=== PATIENT | female | born 1990 | race Caucasian/White ===

== ENCOUNTER 2020-05-11 16:25 | Outpatient (CLI) | payer OTHER ==
--- NOTE | 2020-05-11 17:50 | Ultrasound Report ---
PROCEDURE: OB First Trimester INDICATIONS: POSITIVE PREGANCY TEST OUTSIDE/PRIOR DATING DATA: Last menstrual period (LMP): 03/13/2020. LMP-based estimated date of delivery (JOSE): 12/18/2020. First dating scan (date and location): Today's scan. TECHNIQUE: Real-time scanning was performed of the fetus and maternal pelvic organs, with image documentation. COMPARISON: None. FINDINGS: Embryo: There is an intrauterine gestational . A pole is present with a crown-rump le ngth averaging 1.9 cm corresponding to an estimated gestational age of 8 weeks 3 days. Additionally, the mean gestational sac diameter is 3.1 cm corresponding to an estimated gestational age of 8 weeks 2 days. A yolk sac is also present. heart rate of 180 bpm. Measurement variability in dating: +/- 4 weeks by LMP, +/- 7 days by mean sac diameter (use before 6 weeks gestation if crown-rump length not able to be measured), +/- 5 days by crown-rump length (6-12 weeks gestation). Maternal organs: Right ovary measures 3.5 x 1.8 x 1.8 cm. Left ovary measures 5.0 x 3.9 x 3.2 cm. The re is a simple anechoic 3.2 cm cyst in the left ovary. The cervix is closed. IMPRESSION: Single living intrauterine with heart rate of 180 bpm. Estimated gestational age on jose albrecht's study is 8 weeks 3 days by crown-rump length. Simple 3.2 cm cyst of the left ovary. Reviewed by: Dexter Easton on 05/11/2020 4:49 PM JESSE Approved by: Dexter Easton on 05/11/2020 4:49 PM JESSE Station ID: [id number]
== END 2020-05-11 16:26 | disposition home or self-care (01) ==
LOC: DI 16:25
PROVIDERS: ATTEND Nurse Practitioner Obstetrics & Gynecology
DX: Z32.01 Encounter for pregnancy test, result positive (principal)
CPT/HCPCS: 76801

== ENCOUNTER 2020-05-21 10:00 | Outpatient (CLI) | payer OTHER ==
[2020-05-21 15:51] LABS: BILIRUBIN,URINE NEGATIVE (NEGATIVE); GLUCOSE, URINE (UA) NEGATIVE (NEGATIVE); KETONES,URINE (UA) NEGATIVE (NEGATIVE); LEUKOCYTE ESTERASE, URINE NEGATIVE (NEGATIVE); NITRITE,URINE NEGATIVE (NEGATIVE); OCCULT BLOOD,URINE NEGATIVE (NEGATIVE); PROTEIN,URINE NEGATIVE (NEGATIVE); UROBILINOGEN,URINE 0.2 (NORMAL) E.U./dL (NORMAL)
[2020-05-21 15:52] LABS: CLARITY,URINE CLEAR (CLEAR)
[2020-05-21 16:00] LABS: BACTERIA,URINE Rare /HPF (None Seen); SQUAMOUS EPITHELIAL CELL,UR FEW Squamous (<= Few)
== END 2020-05-21 23:59 | disposition home or self-care (01) ==
LOC: LAB.R 10:00
PROVIDERS: ATTEND Nurse Practitioner Obstetrics & Gynecology
DX: Z36.89 Encounter for other specified antenatal screening (principal)
CPT/HCPCS: 81001; 87086

== ENCOUNTER 2020-05-28 11:08 | Outpatient (CLI) | payer OTHER ==
[2020-05-28 11:25] LABS: BASOPHILS # (AUTO) 0.1 10^3/uL (0.0-0.1); BASOPHILS % (AUTO) 0.6 %; EOSINOPHILS # (AUTO) 0.2 10^3/uL (0.0-0.7); HGB - HEMOGLOBIN 13.2 g/dL (12.0-16.0); LYMPHOCYTES % (AUTO) 9.8 %; MEAN CORPUSCULAR HEMOGLOBIN 30.2 pg (27.0-31.0); MEAN CORPUSCULAR HGB CONC 33.2 g/dL (32.0-36.0); MEAN CORPUSCULAR VOLUME 91.1 fL (81.0-99.0); MEAN PLATELET VOLUME 8.5 fL (7.9-10.8); MONOCYTES # (AUTO) 0.5 10^3/uL (0.0-1.0); MONOCYTES % (AUTO) 4.9 %; NEUTROPHILS # (AUTO) 8.2 10^3/uL (1.5-6.6); PLT - PLATELET COUNT 212 10^3/uL (130-450); RED BLOOD COUNT 4.37 10^6/uL (4.20-5.40); RED CELL DISTRIBUTION WIDTH 11.9 % (12.0-15.0)
[2020-05-29 12:16] LABS: HIV AG/AB 4TH GEN NON-REACTIVE (NON-REACTIVE)
[2020-05-29 12:45] LABS: HEPATITIS C ANTIBODY NON-REACTIVE (NON-REACTIVE)
[2020-05-29 12:46] LABS: HEPATITIS B SURFACE ANTIGEN NON-REACTIVE (NON-REACTIVE)
== END 2020-05-28 11:09 | disposition home or self-care (01) ==
LOC: LAB 11:08
PROVIDERS: ATTEND Nurse Practitioner Obstetrics & Gynecology
DX: Z36.89 Encounter for other specified antenatal screening (principal)
CPT/HCPCS: 36415; 81599; 85025; 86592; 86762; 86787; 86803; 86850; 86900; 86901; 87340; 87389

== ENCOUNTER 2020-07-23 07:26 | Outpatient (CLI) | payer OTHER | END 2020-07-23 07:27 | disposition home or self-care (01) | LOC: LAB 07:26 | PROVIDERS: ATTEND Nurse Practitioner Obstetrics & Gynecology | DX: Z36.89 Encounter for other specified antenatal screening (principal) | CPT/HCPCS: 36415; 82306 ==

== ENCOUNTER 2020-08-06 07:18 | Outpatient (CLI) | payer OTHER ==
--- NOTE | 2020-08-06 18:16 | Ultrasound Report ---
PROCEDURE: OB Detailed Eval INDICATIONS: SCREENING OUTSIDE/PRIOR DATING DATA: Last menstrual period (LMP): 03/13/2020. LMP-based estimated date of delivery (JOSE): 12/19/2019. First dating scan (date and location): 05/11/2020. Estimated date of delivery (JOSE) from first dating scan: 12/18/2020. TECHNIQUE: Real-time scanning was performed of the fetus, with image documentation and biometric measurements. Endovaginal scanning: Not performed COMPARISON: OB ultrasound, 05/11/2020. FINDINGS: General: A single living intrauterine gestation is present. Presentation: Cephalic, spine to the maternal left Placenta: Placental position is posterior, without previa. Amniotic fluid index: 13.6 cm, 38.3% for gestational age. heart rate: 144 beats per minute. Maternal cervical canal: 3.4 cm long; normal length is 2.5 cm or more. biometrics: Biparietal diameter: 20 weeks 4 days Head circumference: 20 weeks 5 days Abdominal circumference: 21 weeks 1 day Femur length: 20 weeks 2 days Estimated gestational age from initial scan: 20 weeks 6 days. Composite gestational age from present scan: 20 weeks 5 days Estimated weight and percentile: 375 g at 38.8% for gestational age Measurement variability in biometric dating: +/- 10 days from 12-20 weeks gestation, +/- 2 weeks from 20-30 weeks gestation, +/- 3 weeks at 30 weeks gestation or later. Anatomic survey: Neuro: Ventricles are normal at less than 10 mm. Cisterna magna is normal at 3-11 mm. Cerebellum i s normal in size and morphology. Nuchal skin fold: Normal at less than 6 mm between 14 and 20 weeks gestational age. Face: Nose and lips, facial profile are normal. Spine: No evidence for spina bifida. Heart: 4-chambered heart is present, with normal ventricular outflow tracts. Diaphragm: Diaphragm is intact. Stomach: Left-sided stomach is present. Kidneys: No hydronephrosis. Normal is less than 5 mm in 2nd trimester, less than 7 mm in 3rd trimester. Cord: 3 vessel cord has orthotopic insertion. Bladder: Normal in size. Extremities: All 4 extremities are visualized. IMPRESSION: 1. A single living intrauterine with appropriate interval growth. 2. Normal anatomic survey. Reviewed by: Steffi Tello MD on 08/06/2020 6:14 PM PST Approved by: Steffi Tello MD on 08/06/2020 6:14 PM PST Station ID: [id number]
== END 2020-08-06 07:19 | disposition home or self-care (01) ==
LOC: DI 07:18
PROVIDERS: ATTEND Nurse Practitioner Obstetrics & Gynecology
DX: Z36.89 Encounter for other specified antenatal screening (principal)

== ENCOUNTER 2020-09-17 07:18 | Outpatient (CLI) | payer OTHER ==
[2020-09-17 08:40] LABS: HGB - HEMOGLOBIN 12.6 g/dL (12.0-16.0); MEAN CORPUSCULAR HEMOGLOBIN 31.7 pg (27.0-31.0); MEAN CORPUSCULAR HGB CONC 33.3 g/dL (32.0-36.0); MEAN PLATELET VOLUME 8.7 fL (7.9-10.8); RED BLOOD COUNT 3.98 10^6/uL (4.20-5.40); RED CELL DISTRIBUTION WIDTH 12.7 % (12.0-15.0); WHITE BLOOD COUNT 7.9 x10^3/uL (4.8-10.8)
== END 2020-09-17 07:19 | disposition home or self-care (01) ==
LOC: LAB 07:18
PROVIDERS: ATTEND Nurse Practitioner Obstetrics & Gynecology
DX: Z36.89 Encounter for other specified antenatal screening (principal)
CPT/HCPCS: 36415; 82950; 85027

== ENCOUNTER 2020-10-01 07:09 | Outpatient (CLI) | payer OTHER | END 2020-10-01 07:10 | disposition home or self-care (01) | LOC: LAB 07:09 | PROVIDERS: ATTEND Nurse Practitioner Obstetrics & Gynecology | DX: O99.810 Abnormal glucose complicating pregnancy (principal) | CPT/HCPCS: 36415; 82951; 82952 ==

== ENCOUNTER 2020-11-20 10:47 | Outpatient (CLI) | payer OTHER | END 2020-11-20 23:59 | disposition home or self-care (01) | LOC: LAB.R 10:47 | PROVIDERS: ATTEND Advanced Practice Midwife | DX: Z34.90 Encounter for supervision of normal pregnancy, unspecified, unspecified trimester (principal); Z36.85 Encounter for antenatal screening for Streptococcus B | CPT/HCPCS: 87797 ==

== ENCOUNTER 2020-12-26 08:13 | Outpatient (CLI) | payer OTHER ==
[2020-12-26 08:38] VITALS: BP 106/73
--- NOTE | 2020-12-26 11:13 | PROCEDURE REPORT ---
- HPI Diagnosis/Indication for NST: Post-dates gestation Current EDU 12/18/20 Gestation 41 Weeks and 1 Days 1 Para 0 Vital Signs Temperature 36.8 C 12/26/20 08:31 Heart Rate 79 12/26/20 08:31 Respiratory Rate 18 12/26/20 08:31 Blood Pressure 106/73 12/26/20 08:31 Temperature 36.8 C 12/26/20 08:31 Heart Rate 79 12/26/20 08:31 Respiratory Rate 18 12/26/20 08:31 Blood Pressure 106/73 12/26/20 08:31 O2 Saturation - NST Procedure NST Procedure Start Date 12/26/20 Start Time 08:25 Stop Time 08:54 Vibroacoustic Stimulation Used No Patient States Movement Yes - Results and Plan Plan: Barbi presents today at 41.1wks gestation for scheduled NST secondary to postdates . She states she is feeling well and denies concerns or complaints today. NST performed 12/26/2020 NST read 12/26/2020 NST reactive. FHR baseline 130s, moderate variability, + accels, no decels No contractions appreciated via tocometry Pt released home with precautions. Return for scheduled medical induction of labor 12/30/2020 or sooner PRN. Pt verbalized understanding and agrees to above plan. She denies further questions or concerns at this time. FINAL ASSESSMENT: Postdates
== END 2020-12-26 08:54 | disposition home or self-care (01) ==
LOC: WFO 08:13 → FBP 08:18 → WFO 08:54
PROVIDERS: ATTEND Nurse Practitioner Obstetrics & Gynecology
DX: O48.0 Post-term pregnancy (principal); Z3A.41 41 weeks gestation of pregnancy
CPT/HCPCS: 59025

== ENCOUNTER 2020-12-30 08:28 | Inpatient (IN) | payer OTHER ==
--- NOTE | 2020-12-30 08:38 | HISTORY & PHYSICAL EXAMINATION ---
Admit History - Visit Reason Visit Reason: Other - : 1 Parity: 0 Premature: 0 Ectopic: 0 : 0 Care: positive: [facility] Risk/History: positive: None Complications This : positive: None Smoking Status: Never smoker - Mother's Labs Mother's Blood Type: positive: O Mother's RH: positive: Positive GBS: positive: Group B Step Negative Rubella Status: positive: Immune Meds/Allgy - Allergies Allergies/Adverse Reactions: Allergies Allergy/AdvReac Type Severity Reaction Status Date / Time No Known Drug Allergies Allergy Verified 12/30/20 09:53 Review of Systems - Constitutional Constitutional: denies: Fever, Chills - Eyes Eyes: denies: Blurred vision, Spots in vision, Dipolpia - Cardiovascular Cariovascular: denies: Palpitations, Chest pain, Edema - Respiratory Respiratory: denies: Cough, SOB at rest - Gastrointestinal Gastrointestinal: denies: Change in bowel habits - Integumentary Integumentary: denies: Rash, Pruritis - Neurological Neurological: denies: Headache Plan for Labor - Plan For Labor I expect patient to be DC'd or transferred within 96 hours.: Yes Plan for Labor: Barbi is a 30yo 1P0 @ 41.5wks gestation by LMP c/w 8.3wk U/S who presents today for medical induction of labor secondary to post-dates . She reports continued eliud prajapati contractions and occasional cramping but nothing overly painful or consistent. She denies vaginal bleeding or leakage of fluid. She reports +FM. She is supported by her Kenroy. She has been a patient of [facility] through the duration of which has remained uncomplicated with the exception of an impaired 1 hour GTT, however her 3 hour GTT was WNL. She is also noted to be positive for GBS. She is post-dates and will be admitted to [facility] for induction of labor with pre-induction cervical ripening. Dating criteria: LMP: 03/13/2020 Initial U/S @ 8.3wks c/w LMP dating Serial exams - agree OB Hx: G1: Current Medications: PNV Allergies: NKDA PMHx: no significant Surgical Hx: Endoscopy with biopsy (2010); [place] tooth removal (2006) Social Hx. Never smoker. No ETOH or IVDA. Kenroy. Family Hx: HTN - father; Lung cancer- MGF; Alcohol & drug abuse- brother course: Initial U/S: 05/11/2020 @ 8.3wks c/w LMP dating O pos/Rubella immune VZV:immune Genetic testing: declined FAS 08/06/2020 WNL. Posterior placenta, no previa. 3VC. efw 38.8% Glucola 1 hr 140; 3 hour WNL (97, 156, 133, 83) Influenza: declined TDAP declined GBS & at 36 weeks-Positive IPAP HSV: denies self and partner Breast pump Rx provided MOD: Anticipate . Kenroy, baby BOY: Kuldeep. Desires unmedicated delivery. pp contraception: natural family planning & condoms pap: 05/21/2020- wnl Physical Exam: Normocephalic, atraumatic Heart RRR w/o M/G/R Lungs CTAB Abdomen gravid, soft, nontender EFW 3800g SVE deferred FHR baseline 130s, + accels, no decels Contractions - occasional with soft resting tone Bilateral LE's no edema Mood is good Assessment: 30yo @ 41.5wks gestation by LMP c/w 8.3wk U/S Postdates GBS positive FHR Category I Plan: Continuous monitoring Initiate 50mcg BC misoprostol q 4 hours for pre-induction cervical ripening Initiate Ampicillin for GBS prophylaxis per protocol when patient begins feeling contractions or with AROM. Encouraged ambulation and position changes. Jacuzzi PRN. Nitrous oxide PRN. Anticipate . Pt verbalized understanding and agrees to above plan. She denies further questions or concerns at this time.
[2020-12-30] MEDS ORDERED: LIDOCAINE-MPF 1% 30 ML VIAL ID PRN (09:42)
[2020-12-30] MEDS ORDERED: OXYTOCIN/SODIUM CHLORIDE 500 ML IV PRN (09:42)
[2020-12-30] MEDS ORDERED: CARBOPROST TROMETHAMINE 250 MCG/ML AMP IM PRN (09:42)
[2020-12-30] MEDS ORDERED: TRANEXAMIC ACID IN NACL 1,000 MG/100 ML BAG IV PRN (09:42)
[2020-12-30] MEDS ORDERED: miSOPROStoL 200 MCG TABLET BC PRN (09:42)
[2020-12-30] MEDS ORDERED: OXYTOCIN 10 UNIT/ML VIAL IM PRN (09:42)
[2020-12-30] MEDS ORDERED: SODIUM CHLORIDE FLUSH 0.9% 10 ML SYRINGE IVP PRN (09:42)
[2020-12-30] MEDS ORDERED: METHYLERGONOVINE 0.2 MG/ML VIAL IM PRN (09:42)
[2020-12-30 09:52] LABS: BASOPHILS % (AUTO) 0.8 %; EOSINOPHILS % (AUTO) 1.3 %; HCT - HEMATOCRIT 40.8 % (37.0-47.0); HGB - HEMOGLOBIN 13.9 g/dL (12.0-16.0); LYMPHOCYTES % (AUTO) 15.8 %; MEAN CORPUSCULAR HEMOGLOBIN 31.7 pg (27.0-31.0); MEAN CORPUSCULAR HGB CONC 34.1 g/dL (32.0-36.0); MEAN CORPUSCULAR VOLUME 92.9 fL (81.0-99.0); MEAN PLATELET VOLUME 9.3 fL (7.9-10.8); MONOCYTES % (AUTO) 8.8 %; NEUTROPHILS % (AUTO) 67.1 %; PLT - PLATELET COUNT 243 10^3/uL (130-450); RED BLOOD COUNT 4.39 10^6/uL (4.20-5.40); RED CELL DISTRIBUTION WIDTH 13.2 % (12.0-15.0); WHITE BLOOD COUNT 9.7 x10^3/uL (4.8-10.8)
[2020-12-30 09:55] LABS: SLIDE REVIEW? Indicated
[2020-12-30 09:56] LABS: ABNORMAL LYMPHS % (MANUAL) 0 %
[2020-12-30] MEDS: miSOPROStoL 100 MCG TABLET BC SCH ×3 (10:22→19:05)
[2020-12-30 10:23] LABS: BAND NEUTROPHILS % (MANUAL) 6 %; BASOPHILS # (MANUAL) 0.1 10^3/uL (0-0.1); BASOPHILS % (MANUAL) 1 %; EOSINOPHILS # (MANUAL) 0.2 10^3/uL (0-0.7); LYMPHOCYTES # (MANUAL) 1.9 10^3/uL (1.5-3.5); LYMPHOCYTES % (MANUAL) 20 %; METAMYELOCYTES % (MANUAL) 5 %; MONOCYTES # (MANUAL) 0.5 10^3/uL (0.0-1.0); MYELOCYTES % (MANUAL) 1 %; NEUTROPHILS # (MANUAL) 6.4 10^3/uL (1.5-6.6)
[2020-12-30 10:25] LABS: PLATELET ESTIMATE, MANUAL NORMAL (130-450,000) (NORMAL); PLATELET MORPHOLOGY NORMAL APP (NORMAL); RBC MORPHOLOGY (MULTIPLE) NORMAL APPEARANCE (NORMAL)
[2020-12-30 10:26] LABS: DIFFERENTIAL COMMENT MANUAL DIFFERENTIAL; WBC MORPHOLOGY (MULTIPLE) NORMAL APP (NORMAL)
[2020-12-30] MEDS: SODIUM CHLORIDE FLUSH 0.9% 10 ML SYRINGE IVP SCH (19:05)
[2020-12-30] MEDS: LACTATED RINGERS 1,000 ML IV SCH (19:05)
--- NOTE | 2020-12-30 20:49 | PROVIDER PROGRESS NOTE ---
Labor Progress Note - Uterine Monitoring Uterine Monitoring Mode: positive: External toco Contraction Frequency (min/apart): 1-3 Contraction Intensity: positive: Mild to moderate Uterine Resting Tone: positive: Soft - Monitoring Monitor Mode: positive: External ultrasound Heart Rate Baseline: 125 Heart Rate Variability: positive: Moderate (6-25 bmp) Accelerations: positive: Present, 15x15 Decelerations: positive: None Strip Review: positive: Category I - Vaginal Exam Dilation (in cm): 1 Effacement (%): 50 Station: -2 Cervical Position: Midposition - Labor Progress Note Labor Progress Note/Additional Text: S: Feeling very minimal discomfort with contractions. Denies concerns or complaints at this time. is supportive at the bedside. O: FHR baseline 125, moderate variability, + accels, no decels Contractions palpate mild every 1-3 minutes with soft resting tone S/p 3 doses of 50mcg BC misoprostol SVE 1/50/-2, midposition, medium. Vertex. Rodriguez cervical ripening balloon placed with 60cc in uterine lumen and 60cc in vaginal lumen. Pt tolerated placement well. A: 30yo @ 41.5wks gestation Postdates FHR Category I GBS positive P: Discontinue misoprostol now (5 hours since last dose). Monitor x 30 minutes after rodriguez cervical ripening balloon and then may take pt off monitors until contractions until early labor or SROM. Initiate GBS prophylaxis per protocol with SROM or early labor. Ambien PRN for sleep. Encouraged ambulation and position changes until she is ready to sleep for the night. Anticipate . Pt verbalized understanding and agrees to above plan. She denies further questions or concerns at this time.
[2020-12-30] MEDS ORDERED: ZOLPIDEM 5 MG TABLET PO PRN (20:51)
--- NOTE | 2020-12-31 07:27 | PROVIDER PROGRESS NOTE ---
Labor Progress Note - Uterine Monitoring Uterine Monitoring Mode: positive: External toco Contraction Frequency (min/apart): occasional Contraction Intensity: positive: Mild Uterine Resting Tone: positive: Soft - Monitoring Monitor Mode: positive: External ultrasound Heart Rate Baseline: 125 Heart Rate Variability: positive: Moderate (6-25 bmp) Accelerations: positive: Present, 15x15 Decelerations: positive: None Strip Review: positive: Category I - Vaginal Exam Dilation (in cm): 3-4 Effacement (%): 70 Station: -2 Cervical Position: Midposition - Labor Progress Note Labor Progress Note/Additional Text: S: Pt states she was feeling quite a bit more discomfort yesterday evening after the rodriguez bulb was placed. She got in the bath and was able to get comfortable. She ended up taking the ambien and was able to get a good night's rest. She is feeling well today. Her remains supportive at the bedside. O: FHR baseline 125, moderate variability, + accels, no decels Contractions palpate mild, irregularly Rodriguez cervical ripening balloon removed SVE 3-4/70/-2. Vertex. Intact membranes. S/p 3 doses of 50mcg BC misoprostol A: 30yo @ 41.6wks gestation FHR Category I GBS positive P: Continuos monitoring. Reviewed management options to include misoprostol vs pitocin and encouraged initiation of pitocin for labor induction. Pt elects to try 1 additional dose of 50mcg BC misoprostol and nipple stimulation prior to initiation of pitocin. Will initiate GBS prophylaxis per protocol with early labor onset or SROM. Encouraged ambulation and position changes. Jacuzzi PRN. Nitrous oxide PRN. Anticipate . Pt verbalized understanding and agrees to above plan. She denies further questions or concerns at this time.
[2020-12-31] MEDS ORDERED: miSOPROStoL 100 MCG TABLET BC SCH (07:45)
[2020-12-31] MEDS ORDERED: OXYTOCIN/SODIUM CHLORIDE 500 ML IV SCH (13:00)
[2020-12-31] MEDS: LACTATED RINGERS 1,000 ML IV SCH (13:10)
[2020-12-31] MEDS ORDERED: AMPICILLIN 2 GM in SODIUM CHLORIDE 0.9% MINIBAG 100 ML IV ONE (17:25)
--- NOTE | 2020-12-31 17:33 | PROVIDER PROGRESS NOTE ---
Labor Progress Note - Uterine Monitoring Uterine Monitoring Mode: positive: External toco Contraction Frequency (min/apart): 2-6 Contraction Intensity: positive: Mild to moderate Uterine Resting Tone: positive: Soft - Monitoring Monitor Mode: positive: External ultrasound Heart Rate Baseline: 130 Heart Rate Variability: positive: Moderate (6-25 bmp) Accelerations: positive: Present, 15x15 Decelerations: positive: None Strip Review: positive: Category I - Vaginal Exam Dilation (in cm): 4 Effacement (%): 50 Station: -2 Cervical Position: Posterior - Labor Progress Note Labor Progress Note/Additional Text: S: Feeling slight more discomfort with contractions. Feeling good about our plan of care. Her remains present and supportive at the bedside. O: FHR baseline 130s, moderate variability, + accels, no decels Contractions palpate mild every 2-5 minutes with soft resting tone SVE 4/50/-2, posterior. Soft. Vertex. AROM moderate amount of very lightly meconium stained amniotic fluid. Pitocin @ 2mU/mL A: 30yo @ 41.6wks gestation Postdates GBS positive FHR Category I P: Initiate Ampicillin for GBS prophylaxis per protocol Continuous monitoring Hold Pitocin @ 2mU/mL. Repeat SVE in 4 hours. Anticipate . Pt verbalized understanding and agrees to above plan. She denies further questions or concerns at this time.
[2020-12-31] MEDS: AMPICILLIN 1 GM in SODIUM CHLORIDE 0.9% MINIBAG 100 ML IV SCH (21:18)
--- NOTE | 2020-12-31 21:28 | PROVIDER PROGRESS NOTE ---
Labor Progress Note - Uterine Monitoring Uterine Monitoring Mode: positive: External toco Contraction Frequency (min/apart): 2-3 Contraction Intensity: positive: Strong Uterine Resting Tone: positive: Soft - Monitoring Monitor Mode: positive: External ultrasound Heart Rate Baseline: 145 Heart Rate Variability: positive: Moderate (6-25 bmp) Accelerations: positive: Present, 15x15 Decelerations: positive: None Strip Review: positive: Category I - Labor Progress Note Labor Progress Note/Additional Text: S: Patient sitting in tub with and brake holder supportive at the bedside. She is feeling significantly more discomfort with contractions that she was previously. She is breathing and moaning with contractions. Coping well. O: FHR baseline 145, moderate variability, + accels, no decels Contractions palpate strong every 2-3 minutes with soft resting tone SVE deferred at this time secondary to patient feeling unable to move from the tub. Pitocin @ 1mU/mL A: 30yo @ 41.6wks gestation Postdates GBS positive FHR Category I P: Continuous monitoring Continue GBS prophylaxis per protocol Anticipate
[2021-01-01] MEDS: LACTATED RINGERS 1,000 ML IV SCH ×2 (00:24→02:32)
--- NOTE | 2021-01-01 00:54 | PROVIDER PROGRESS NOTE ---
Labor Progress Note - Uterine Monitoring Uterine Monitoring Mode: positive: External toco Contraction Frequency (min/apart): 2-3 Contraction Intensity: positive: Strong Uterine Resting Tone: positive: Soft - Monitoring Monitor Mode: positive: External ultrasound Heart Rate Baseline: 130 Heart Rate Variability: positive: Moderate (6-25 bmp) Accelerations: positive: Present, 15x15 Decelerations: positive: None Strip Review: positive: Category I - Vaginal Exam Dilation (in cm): 6 Effacement (%): 80 Station: 0 - Labor Progress Note Labor Progress Note/Additional Text: S: Breathing through contractions. [facility] with partner and broodmare barn groom present for support. She has been moving consistently and is coping well with contractions. O: FHR baseline 130s, moderate variability, + accels, no decels Contractions palpate strong every 2-3 minutes with soft resting tone SVE 6/80/0. Vertex. Pitocin off S/p 2 doses of ampicillin for GBS prophylaxis A: 30yo @ 42.0wks gestation Postdates Active labor FHR Category I GBS pos P: Continue with expectant management at this time. Intermittent monitoring Continue GBS prophylaxis per protocol Encouraged ambulation and position changes. Jacuzzi PRN. Nitrous oxide PRN. Anticipate .
[2021-01-01] MEDS: AMPICILLIN 1 GM in SODIUM CHLORIDE 0.9% MINIBAG 100 ML IV SCH ×3 (01:10→09:00)
[2021-01-01] MEDS ORDERED: ROPIVACAINE 0.2% 200 MG/100 ML BAG EP ONE (01:59)
[2021-01-01] MEDS ORDERED: ePHEDrine 50 MG/ML VIAL IVP PRN (02:44)
[2021-01-01] MEDS ORDERED: ONDANSETRON 4 MG/2 ML VIAL IVP PRN (02:44)
[2021-01-01] MEDS ORDERED: NALBUPHINE 10 MG/ML AMP IVP PRN (02:44)
[2021-01-01] MEDS ORDERED: ROPIVACAINE 0.2% 200 MG/100 ML BAG EP PRN (02:44)
[2021-01-01] MEDS ORDERED: diphenhydrAMINE INJ 50 MG/ML VIAL IVP PRN (02:44)
[2021-01-01] MEDS ORDERED: NALOXONE 0.4 MG/ML VIAL IVP PRN (02:44)
[2021-01-01] MEDS ORDERED: METOCLOPRAMIDE 10 MG/2 ML VIAL IVP PRN (02:44)
--- NOTE | 2021-01-01 02:44 | ANESTHESIA ---
Pre-Anesthesia VS, & Labs - Diagnosis active labor - Procedure labor epidural Vital Signs: Temp Pulse Resp BP Pulse Ox 36.7 C 72 14 112/65 97 12/31/20 07:00 12/31/20 07:00 12/31/20 07:00 12/31/20 07:00 12/31/20 07:00 Height: 5 ft 7 in Weight (kg): 80.467 kg Body Mass Index: 27.8 BMI Classification: Overweight - NPO Other (pt drinking clears) - Is Patient ?: Yes - Lab Results Current Lab Results: Laboratory Tests 12/30/20 09:25: Blood Type O POSITIVE, Antibody Screen NEGATIVE 12/30/20 09:25: WBC 9.7, RBC 4.39, Hgb 13.9, Hct 40.8, MCV 92.9, MCH 31.7 H, MCHC 34.1, RDW 13.2, Plt Count 243, MPV 9.3, Neut # (Auto) Not Reportable, Lymph # (Auto) Not Reportable, Hamlin # (Auto) Not Reportable, Eos # (Auto) Not Reportable, Baso # (Auto) Not Reportable, Absolute Nucleated RBC Not Reportable, Total Counted 100, Band Neuts % (Manual) 6, Abnorm Lymph % (Manual) 0, Metamyelocytes % 5 H, Myelocytes % 1 H, Nucleated RBC % Not Reportable, Neutrophils # (Manual) 6.4, Lymphocytes # (Manual) 1.9, Monocytes # (Manual) 0.5, Eosinophils # (Manual) 0.2, Basophils # (Manual) 0.1, Differential Comment MANUAL DIFFERENTIAL, Manual Slide Review Indicated, WBC Morphology NORMAL APRIL, Platelet Estimate NORMAL (130-450,000), Platelet Morphology NORMAL APRIL, RBC Morph Micro Appear NORMAL APPEARANCE Fish Bones: 12/30/20 09:25 Home Medications and Allergies Home Medications: Ambulatory Orders Pnv No.121/Iron/Folic Acid [ Multivitamin Tablet] 1 tab PO DAILY 12/31/20 Active Medications Carboprost Tromethamine (Carboprost Tromethamine 250 Mcg/Ml Amp) 250 mcg IM Q15M PRN PRN Reason: Step 4: Hemorrhage protocol Stop: 01/04/21 09:43 Oxytocin/Sodium Chloride (Pitocin/Sodium Chloride) 500 mls @ 999 mls/hr IV PRN PRN; Protocol PRN Reason: POST- HEMORR PREVENTION Stop: 01/04/21 09:43 Tranexamic Acid (Tranexamic 1,000 Mg/100ml-Nacl) 1,000 mg in 100 mls @ 600 mls/hr IV .ONCE PRN PRN Reason: EBL >1200mL and within 3hr Stop: 01/04/21 09:43 Lactated Ringer's (Lr) 1,000 mls @ 100 mls/hr IV .Q10H [facility] Last Infusion: 12/31/20 23:40 Dose: 150 mls/hr Documented by: Oxytocin/Sodium Chloride (Pitocin/Sodium Chloride) 500 mls @ 1 mls/hr IV TITR [facility]; Protocol Last Titration: 12/31/20 14:24 Dose: 2 milliunit/min, 2 mls/hr Documented by: Ampicillin Sodium 1 gm/ Sodium (Chloride) 100 mls @ 200 mls/hr IV Q4H [facility] Last Admin: 01/01/21 01:10 Dose: 200 mls/hr Documented by: Lidocaine HCl (Lidocaine-Mpf 1% 30 Ml Vial) 30 ml ID .ONCE PRN PRN Reason: PERINEAL REPAIR Stop: 01/04/21 09:43 Methylergonovine Maleate (Methylergonovine 0.2 Mg/Ml Vial) 0.2 mg IM .ONCE PRN PRN Reason: Step 2: Hemorrhage protocol Stop: 01/04/21 09:43 Misoprostol (Misoprostol 200 Mcg Tablet) 800 mcg BC .ONCE PRN PRN Reason: Step 3: Hemorrhage protocol Stop: 01/04/21 09:43 Misoprostol (Misoprostol 100 Mcg Tablet) 50 mcg BC Q4H [facility] Oxytocin (Oxytocin 10 Unit/Ml Vial) 10 unit IM .ONCE PRN PRN Reason: Step one: If no IV access Stop: 01/04/21 09:43 Sodium Chloride (Sodium Chloride Flush 0.9% 10 Ml Syringe) 10 ml IVP 0100,0900,1700 [facility] Last Admin: 12/30/20 19:05 Dose: Not Given Documented by: Sodium Chloride (Sodium Chloride Flush 0.9% 10 Ml Syringe) 10 ml IVP PRN PRN PRN Reason: NEEDED PER PROVIDER ORDERS Zolpidem Tartrate (Zolpidem 5 Mg Tablet) 5 mg PO QPM PRN PRN Reason: Insomnia Last Admin: 12/30/20 22:02 Dose: 5 mg Documented by: Pnv No.121/Iron/Folic Acid [ Multivitamin Tablet] 1 tab PO DAILY 12/31/20 Allergies/Adverse Reactions: Allergies Allergy/AdvReac Type Severity Reaction Status Date / Time No Known Drug Allergies Allergy Verified 12/30/20 09:53 Anes History & Medical History - Anesthetic History Anesthesia Complications: reports: No previous complications Family history of Anesthesia Complications: Denies Family history of Malignant Hyperthermia: Denies - Medical History Cardiovascular: reports: None Pulmonary: reports: None Gastrointestinal: reports: None Urinary: reports: None Neuro: reports: None Musculoskeletal: reports: None Endocrine/Autoimmune: reports: None Blood Disorders: reports: None Skin: reports: None Smoking Status: Never smoker Psychosocial: reports: No issues indicated - Obstetrical History : 1 Parity: 0 Events: reports: None Complications: reports: None Exam General: Alert, Oriented x3, Cooperative Dental: WNL Mouth Openin Fingerbreadth Neck Mobility: Normal Mallampati classification: II Thyromental Distance: 4-6 cm Respiratory: Lungs clear Cardiovascular: Regular rate Plan Anesthesia Type: Epidural Consent for Procedure(s) Verified and Reviewed: Yes Code Status: Attempt Resuscitation ASA classification: 2-Mild systemic disease Is this case an emergency?: No
--- NOTE | 2021-01-01 02:52 | CONSULTATION NOTE ---
Consultation Report: called to the bedside due to pt requesting labor epidural. Consent obtained. Pt positioned sitting with assistance of RN and christina. Labor epidural placed with ease, sterile technique maintained. Pt tolerated well. BP remains stable. See paper charting. NAC. Pt claims relief with subsequent contractions
--- NOTE | 2021-01-01 07:28 | PROVIDER PROGRESS NOTE ---
Labor Progress Note - Uterine Monitoring Uterine Monitoring Mode: positive: IUPC Contraction Frequency (min/apart): 3-7 Contraction Intensity: positive: Moderate Uterine Resting Tone: positive: Soft - Monitoring Monitor Mode: positive: External ultrasound Heart Rate Baseline: 150 Heart Rate Variability: positive: Moderate (6-25 bmp) Accelerations: positive: Absent Decelerations: positive: Late, Variable, Intermittent (<50% x20 min) Strip Review: positive: Category II - Vaginal Exam Dilation (in cm): 7 Effacement (%): 100 Station: 0 - Labor Progress Note Labor Progress Note/Additional Text: S: Feeling comfortable with her epidural. Slightly nervous following a late deceleration but feeling better now that FHR has improved with position changes. She was able to get a little sleep after placement of her epidural last night. O: BP 107/58, HR 75, FHR baseline 150, moderate variability, + accels, no decels Contractions palpate moderate every 2-7 minutes with soft resting tone SVE 7/100/0. Vertex. IUPC placed without difficulty A: 30yo @ 42.0wks gestation Postdates Active labor GBS positive P: Initiate pitocin for adequacy of contractions. Continuous monitoring Monitor contractions and calculate MVUs with IUPC Continue GBS prophylaxis per protocol. Anticipate . Pt verbalized understanding and agrees to above plan. She denies further questions or concerns at this time.
--- NOTE | 2021-01-01 08:22 | PROVIDER PROGRESS NOTE ---
Labor Progress Note - Uterine Monitoring Uterine Monitoring Mode: positive: IUPC Contraction Frequency (min/apart): 150 Contraction Intensity: positive: Moderate to strong Uterine Resting Tone: positive: Soft - Monitoring Monitor Mode: positive: External ultrasound Heart Rate Baseline: 150 Heart Rate Variability: positive: Moderate (6-25 bmp) Accelerations: positive: Absent Decelerations: positive: Variable, Intermittent (<50% x20 min) Strip Review: positive: Category II - Vaginal Exam Dilation (in cm): 9 Effacement (%): 100 Station: 0 - Labor Progress Note Labor Progress Note/Additional Text: S: Feeling comfortable with epidural. Relieved that she was able to dilate to 9cm and is hopeful she can achieve a vaginal delivery. Her and acid concentrator remain supportive at the bedside. O: FHR baseline 150, moderate variability, no accels, occasional variable deceleration Contractions palpate moderate to strong every 5 minutes with soft resting tone SVE 9/100/0 with caput to +1. Vertex A: 30yo @ 42.0wks gestation postdates GBS positive FHR category II P: Continuous monitoring Continue expectant management Anticipate
[2021-01-01] MEDS ORDERED: HYDROCORTISONE 1% CREAM 28 GM TUBE PR PRN (12:33)
--- NOTE | 2021-01-01 13:20 | DELIVERY NOTE ---
Delivery Note - Labor Labor: positive: Augmented by oxytocin, Induced by ARM - Delivery Method Infant Delivery Method: positive: Spontaneous vaginal delivery - Cervical Ripening Method Cervical Ripening Method: positive: Misoprostil - Presentation Presentation: positive: Vertex, Compound, CRISTINE - left occiput anterior - Nuchal Cord Nuchal Cord: positive: Present, Reduced - Amniotic Fluid Description Amniotic Fluid Description: positive: Light meconium - Episiotomy Type Episiotomy Type: positive: None - Laceration Laceration: positive: 1st degree, Vaginal - Suture Suture Type: positive: Vicryl Suture Size: positive: 2-0, 3-0 - Delivery Outcome Delivery Outcome: positive: Livebirth - : positive: Placed in direct skin contact with mother, Bulb syringe, Stimulated, Warmed, [place] used, Warmer used sex: positive: Male - Cord Cord: positive: 3 vessels - Placenta Placenta: positive: Intact, Spontaneous - Estimated Blood Loss Estimated Blood Loss (in cc): 250 - Post Delivery Events Post Delivery Events: positive: No post delivery events - Delivery Comments (Free Text/Narrative) Delivery Comments (Free Text/Narrative): Labor: This 30yo @ 42.0wks gestation presented to [facility] on 12/30/2020 for medical induction of labor secondary to postdates . Her cervix was 1/50/-2, posterior and vertex. She was give 3 doses of 50mcg BC misoprostol for pre-induction cervical ripening. A rodriguez cervical ripening balloon was then plac ed and removed after 12 hours. Pt was noted to be 3-4cm dilated at that time and pitocin was initiated for labor augmentation. The maximum infusion rate of pitocin was 8mU/mL. AROM occurred on 12/31/20 @ 1730 and was noted to be a moderate amount of very lightly meconium stained amniotic fluid. The patient progressed to c/c/0 at 0838. Labor was complicated by a prolonged second stage with total time of active pushing 3 hours and 9 minutes. : She progressed to spontaneously deliver a viable male on 01/01/2021 @ 1147. Tight nuchal cord x 1 was reduced. The was placed on maternal abdomen, stimulated, dried. The umbilical cord was doubly clamped by CNM and cut by FOB. transferred to warmer where he immediately began to cry and become pink. He was then moved back to his mother's chest and placed skin to skin after brief initial assessment. Apgars were 8/9 at 1 and 5 min respectively. Pitocin administered via IV for hemostasis. Fundal massage and gentle cord traction applied for active management of the third stage. Placenta delivered spontaneously and intact at 1151. EBL 250mL. Fourth stage: Uterine fundus firm and there is no excessive bleeding. The perineum, vagina, and cervix were inspected and noted to have a minor first degree vaginal laceration which was repaired using a 2-[address]-1 needle in standard fashion and under sterile conditions. There was also noted to be a superficial left labial laceration which was repaired with 1 interrupted suture using a 3-[address]-1 needle in standard fashion and under sterile conditions. Vaginal examination following repair was done. Tissues well approximated. initiated. Family bonding well. Both mother and baby were left in stable condition.
[2021-01-01] MEDS: ACETAMINOPHEN 500 MG TABLET PO SCH ×3 (13:38→21:36)
[2021-01-01] MEDS: IBUPROFEN 800 MG TABLET PO SCH ×3 (13:39→19:54)
[2021-01-01] MEDS: DOCUSATE SODIUM 100 MG CAPSULE PO SCH ×3 (13:40→21:36)
[2021-01-02] MEDS: IBUPROFEN 800 MG TABLET PO SCH ×4 (01:59→22:41)
[2021-01-02] MEDS: LACTATED RINGERS 1,000 ML IV SCH (04:46)
[2021-01-02] MEDS: ACETAMINOPHEN 500 MG TABLET PO SCH ×2 (08:11→16:42)
[2021-01-02] MEDS: DOCUSATE SODIUM 100 MG CAPSULE PO SCH ×2 (08:11→22:41)
--- NOTE | 2021-01-02 09:21 | PROVIDER PROGRESS NOTE ---
Subjective - Subjective Subjective: S: Bonding well with baby. She is without difficulty and is currently feeding in a side-lying position in bed. Bleeding is moderate and states it is like a menstrual cycle. She reports changing a pad every 3 hours. She states her perineal discomfort is significantly improved since yesterday and her pain is managed with ibuprofen and tylenol. She is urinating without difficulty. She is ambulating and tolerating a regular diet. Her mood is good. Her is supportive at the bedside. O: BP 102/57, HR 68, T 36.7, RR 16 Heart RRR w/o M/G/R, lungs CTAB, abdomen soft and nontender, perineum intact, repair with mild edema, light lochia rubra, bilateral LE's no edema A: 30yo -->P1 PPD#1 s/p TSVD viable male 1st degree perineal laceration - intact P: Continue routine pp care and medications. Evaluate for discharge home tomorrow. Pt verbalized understanding and agrees to above plan. She denies further questions or concerns at this time. Objective - Vital Signs/Intake & Output Vital Signs: Vital Signs x48h Temp Pulse Resp BP Pulse Ox 01/02/21 08:00 36.7 C 68 16 102/57 L 99 01/02/21 05:29 36.6 C 62 14 90/53 L 97 Intake & Output: Intake & Output 12/30/20 12/31/20 01/01/21 01/02/21 23:59 23:59 23:59 23:59 Intake Total 9321.663 7461 1000 Balance 2636.411 1076 1000 - Lab Results Fish Bones: 12/30/20 09:25
[2021-01-02] MEDS: WITCH HAZEL/GLYCERIN 1 PAD TOP PRN (18:58)
[2021-01-03] MEDS: ACETAMINOPHEN 500 MG TABLET PO SCH ×2 (00:47→08:12)
[2021-01-03] MEDS: SODIUM CHLORIDE FLUSH 0.9% 10 ML SYRINGE IVP SCH (01:05)
[2021-01-03] MEDS: AMPICILLIN 1 GM in SODIUM CHLORIDE 0.9% MINIBAG 100 ML IV SCH (01:06)
[2021-01-03] MEDS: IBUPROFEN 800 MG TABLET PO SCH ×2 (04:33→10:51)
[2021-01-03 07:49] VITALS: BP 122/59
[2021-01-03] MEDS: DOCUSATE SODIUM 100 MG CAPSULE PO SCH (08:13)
[2021-01-03] MEDS: WITCH HAZEL/GLYCERIN 1 PAD TOP PRN (08:13)
--- NOTE | 2021-01-03 10:32 | Discharge Plan ---
Discharge Plan Problem Reviewed?: Yes Disposition: Home, Self Care Condition: Good Diet: Regular Activity Restrictions: No Restrictions Shower Restrictions: No Driving Restrictions: No Weight Bearing: Full Weight No Smoking: If you smoke, Please STOP! Call for help. Follow-up with: Rona De La Paz CNM, ARNP [Provider Admit Priv/Credential] -
--- NOTE | 2021-01-03 10:39 | PROVIDER PROGRESS NOTE ---
Subjective - Subjective Subjective: S: Bonding well with baby. She is without difficulty however she does have a lot of questions. She states she feels well supported and confident going home and being able to breastfeed. She feels her pain is well controlled with ibuprofen and tylenol. She does not feel her perineum is as sore or swollen as it was yesterday. She is ambulating and tolerating a regular diet. She is urinating without difficulty. Her is supportive at the bedside. O: BP 122/59, T 36.3, RR 20, HR 60 Heart RRR w/o M/G/R, lungs CTAB, abdomen soft and nontender with fundus firm at U-2, perineum intact, mild edema, light lochia rubra, bilateral LE's no edema A: 30yo A5W4--W>P1 PPD#2 s/p TSVD viable male P: Reviewed pp self care and warning s/sx and when to present. Pt has emergency contact number. Encouraged continuation of ibuprofen and tylenol OTC as needed for pain management. Encouraged continuation of vitamins while . F/u in 1 week at [facility] or sooner PRN. Pt verbalized understanding and agrees to above plan. She denies further questions or concerns at this time. Objective - Vital Signs/Intake & Output Vital Signs: Vital Signs x48h Temp Pulse Resp BP Pulse Ox 01/03/21 07:48 36.3 C L 60 20 122/59 L 93 Intake & Output: Intake & Output 12/31/20 01/01/21 01/02/21 01/03/21 23:59 23:59 23:59 23:59 Intake Total 1671.972 7363 1000 Balance 6601.586 3920 1000 - Lab Results Fish Bones: 12/30/20 09:25
--- NOTE | 2021-01-03 10:55 | DISCHARGE SUMMARY ---
Discharge Summary Condition at Discharge: Good Discharge Disposition: 01 Home, Self Care - HOSPITAL COURSE Hospital Course: Date of Admission: 12/30/2020 Date of Discharge: 01/03/2021 Diagnosis on Admission: 1. 30yo @ 41.5wks gestation 2. Postdates 3. GBS positive Diagnosis on Discharge: 1. 30yo PPD#2 s/p TSVD viable male 2. 1st degree vaginal laceration - intact 3. Normal recovery Brief History: She is a patient of [facility] who presented on 12/30/2020 for medical induction of labor secondary to postdates . She was given 3 doses of 50mcg BC misoprostol for pre-induction cervical ripening. AROM for labor augmentation was noted to be a moderate amount of clear fluid. Pitocin initiated for labor augmentation with a maximum infusion rate 8mU/mL. The patient progressed to spontaneously deliver a viable male infant on 01/01/2021. Apgars were 8 and 9 at 1 and 5 minutes respectively. EBL 250mL. The patient was noted to have a minor 1st degree vaginal laceration which was repaired in standard fashion and under sterile conditions. She has been doing well in her course. She is ambulating and tolerating a regular diet. She is urinating without difficulty and her lochia is normal. Her pain is well controlled with oral medications. She will be discharged home today on day #2 with instructions to continue taking her ibuprofen and tylenol and to continue taking her vitamin while br eastfeeding. She intends to follow up with myself at [facility] in 1 week for routine visit or sooner if needed. She has been given precautions to call if she has any worsening fevers, chills, abdominal pain, increased bleeding or foul smelling vaginal lochia. - ALLERGIES Allergies/Adverse Reactions: Allergies Allergy/AdvReac Type Severity Reaction Status Date / Time No Known Drug Allergies Allergy Verified 12/30/20 09:53 - MEDICATIONS Home Medications: Ambulatory Orders Medication Instructions Recorded Confirmed Pnv No.121/Iron/Folic Acid 1 tab PO DAILY 12/31/20 12/31/20 [ Multivitamin Tablet] - LABS Result Diagrams: 12/30/20 09:25
--- NOTE | 2021-01-03 13:14 | Labor Flowsheet ---
Labor Flowsheet Datetime Report Generated by CPN: 01/03/2021 13:13 Datetime: 01/02/2021 07:58 VITAL SIGNS NBP Sys/[place]/Mean (mmHg): 102 : 57 : 67 Pulse: 64 Datetime: 01/01/2021 11:48 Comments: Vaginal delivery of viable male infant Datetime: 01/01/2021 11:30 ASSESSMENT A Monitor Mode: External US FHR Baseline Rate : 145 FHR Baseline Changes: No Baseline Change Variability: Moderate 6-25 bpm Decelerations: Variable Category: Category II Oxygen Method: Room Air Datetime: 01/01/2021 11:16 LaborFlag: Labor Datetime: 01/01/2021 11:09 STAGE 2 Pushing: Coached on Pushing Pushing Position: Pushing with Contractions Pushing Progress: Descent with Pushing Stage 2 Comments: Pushing well with ngood recovery in betweem [pushing Datetime: 01/01/2021 10:46 Temperature (C): 37.2 Datetime: 01/01/2021 10:20 Contraction Comments: iupc put Datetime: 01/01/2021 09:41 MEDICATIONS Pitocin (milliunits): Started @ 1 Datetime: 01/01/2021 09:30 UTERINE ACTIVITY Monitor Mode: Internal Frequency (min): 3 Quality: Strong Duration (sec): 60 Resting Tone (Palpate): Relaxed Datetime: 01/01/2021 09:00 Accelerations: None Datetime: 01/01/2021 08:37 Patient Care Comments: GALVAN BULB DRAINED Datetime: 01/01/2021 08:34 VAGINAL EXAM Dilatation (cm): 10.0 Station: 1 Datetime: 01/01/2021 08:11 Exam by: KH Datetime: 01/01/2021 08:03 Actions for Decelerations: Side to Side; Pitocin Off; IV Bolus; Sterile Vaginal Exam Datetime: 01/01/2021 07:40 Stage of : Labor Datetime: 01/01/2021 07:30 Resting Tone IUP (mmHg): 0 Intensity IUP (mmHg): 30 Pitocin Checklist: IUPC Resting Tone less than 25 mmHg Datetime: 01/01/2021 07:18 COMMUNICATION Communication: RN at Bedside Datetime: 01/01/2021 07:17 Communication Comments: bedside report to Julianna RN Datetime: 01/01/2021 07:07 Patient Position/Activity: Left Lateral Hygiene: Farida Care Datetime: 01/01/2021 07:00 Pattern: Normal: <= 5 Contractions in 10 Minutes Datetime: 01/01/2021 06:51 Effacement (%): 100 Vaginal Bleeding: Normal Show Cervix, Consistency: Soft Datetime: 01/01/2021 06:46 Antibiotics: Ampicillin IV 1 Gm Medication Comments: dose #4 Datetime: 01/01/2021 06:42 Provider Reviewed Strip: Yes Datetime: 01/01/2021 06:06 Provider Notified (Name): A Ana Cristina CNM Notification Reason: Status Update Datetime: 01/01/2021 05:59 Respirations: 18 Datetime: 01/01/2021 05:16 Vaginal Exam Comments: SVE unchanged Datetime: 01/01/2021 04:52 PAIN Pain Scale: 0 Pain Presence: None/Denies Pain Coping: Sleeping Datetime: 01/01/2021 04:49 Monitor Interventions for UA: [place] Adjusted Monitor Interventions for FHR: Ultrasound Adjusted Datetime: 01/01/2021 04:46 PATIENT CARE IV/Blood Work: New IV Bag Hung Datetime: 01/01/2021 04:15 TEACHING Instructional Method: Verbal; Verbalized Understanding Plan of Care: Plan of Care Discussed Unit Routine: Monitoring Labor/Induction: Tachysystole Interventions; Interventions Medications: Pitocin Teaching Comments: pt agreeable with plan to restart pitocin Datetime: 01/01/2021 04:08 Anesthesia Level Check: T8- Ribs Datetime: 01/01/2021 04:04 I/O Interventions: Galvan Cath Inserted Datetime: 01/01/2021 04:03 Cervix, Position: Midposition Datetime: 01/01/2021 04:00 SpO2 (%): 98 Datetime: 01/01/2021 02:53 MATERNAL ASSESSMENT Level of Consciousness: Alert Nausea/Vomiting: Denies Datetime: 01/01/2021 02:29 Epidural Procedure: Loading Dose Epidural Procedure Other: Pump Started Datetime: 01/01/2021 02:06 Pain Type: Sharp; Contraction Pain Location: Abdomen; Back Pain Relief Measures: Epidural Given Datetime: 01/01/2021 02:05 PROCEDURE TIME OUT Procedure Verify: Correct Patient Identity; Correct Side and Site are Marked; Accurate Procedure Co nsent Form; Agreement on Procedure to be Done; Correct Patient Position; Relevant Images and Results are Properly Labeled and Displayed; Addressed Need to Administer Antibiotics or Fluids for Irrigation ; Safety Precautions Based on Patient History or Medication Use Epidural Positioning: Sitting Datetime: 01/01/2021 02:02 Anesthesia Comments: SUPERINTENDENT [employer]ODUCTION Jha at bedside Datetime: 01/01/2021 01:40 Pain Management: Epidural; Pain Scale/Goals; Comfort Measures Datetime: 01/01/2021 01:39 Pain Assessment Comments: requesting epidural Datetime: 01/01/2021 00:46 Comfort Measures: Hot Shower/Tub/Spa Datetime: 12/31/2020 19:20 ANESTHESIA Anesthesia Plans: None Datetime: 12/31/2020 17:21 Membranes Rupture Method: Artificial Amniotic Fluid Color: Light Meconium Amniotic Fluid Amount: Moderate Amniotic Fluid Odor: Normal Membrane Comments: AROM Datetime: 12/31/2020 15:00 Temperature Route: Oral Datetime: 12/31/2020 07:00 Membrane Status: Intact Datetime: 12/30/2020 23:20 Analgesics/Sedatives: Ambien (mg) @ Datetime: 12/30/2020 20:31 Cervical Ripening Agents: Galvan Balloon Datetime: 12/30/2020 20:29 Presentation 'A': Cephalic Datetime: 12/30/2020 19:33 DTR's/Clonus: DTRs 2+; No Clonus Headache: Denies Breath Sounds, Left: Clear and Equal Breath Sounds, Right: Clear and Equal RUQ Epigastric Pain: Denies
== END 2021-01-03 12:30 | disposition home or self-care (01) | DRG 807 ==
LOC: WFO 08:28 → FBP 08:31 → WFO 09:41 → FBP 09:42 → OBS 01-02 09:41
PROVIDERS: ADMIT Nurse Practitioner Obstetrics & Gynecology; ATTEND Nurse Practitioner Obstetrics & Gynecology
PROC: 0U7C7ZZ Dilation of Cervix, Via Natural or Artificial Opening (ICD-10-PCS; 2020-12-30)
PROC: 10907ZC Drainage of Amniotic Fluid, Therapeutic from Products of Conception, Via Natural or Artificial Opening (ICD-10-PCS; 2020-12-31)
PROC: 10E0XZZ Delivery of Products of Conception, External Approach (ICD-10-PCS; principal; 2021-01-01)
PROC: 0HQ9XZZ Repair Perineum Skin, External Approach (ICD-10-PCS; 2021-01-01)
DX: O48.0 Post-term pregnancy (principal); Z37.0 Single live birth; O99.824 Streptococcus B carrier state complicating childbirth; O77.0 Labor and delivery complicated by meconium in amniotic fluid; O70.0 First degree perineal laceration during delivery; Z3A.42 42 weeks gestation of pregnancy
CPT/HCPCS: 36415; 85025; 86850; 86900; 86901; A9270; J7120

== ENCOUNTER 2021-05-13 15:57 | Outpatient (CLI) | payer OTHER | END 2021-05-13 15:58 | disposition home or self-care (01) | LOC: LAB.N 15:57 | PROVIDERS: ATTEND Obstetrics & Gynecology | DX: Z13.21 Encounter for screening for nutritional disorder (principal) | CPT/HCPCS: 82306 ==